=== PATIENT | male | born 1985 | race African-American/Black ===

== ENCOUNTER 2016-11-01 23:13 | Emergency (ER) | payer SELFPAY ==
--- NOTE | 2016-11-02 02:54 | ER ---
ADMIT: 11/01/2016 RM/LOC: ER [facility] MR#: [id number] [facility] [address] [place] [id number] JEM GAITAN [address] [address] Emergency Room Report SEX: M AGE: 31 : 1985 DATE: 11/01/2016 The patient is a 31-year-old male in police custody for drunken disorderly conduct. Will not cooperate with nursing staff or medical staff answering questions. Released in police custody. Shaan Townsend MD/ ana JOB #: [id number] CC: Shaan Townsend MD, Attending Physician Gabriel Read MD
== END 2016-11-01 23:23 | disposition home or self-care (01) ==
LOC: ER 23:13
DX: Z02.89 Encounter for other administrative examinations (principal); Z88.8 Allergy status to other drugs, medicaments and biological substances